=== PATIENT | male | born 1995 | race Two or more races ===

== ENCOUNTER 2019-09-23 10:39 | Emergency (ER) | payer BC ==
--- NOTE | 2019-09-23 10:59 | EDM.PDOC ---
ED HPI GENERAL MEDICAL PROBLEM - General Chief Complaint: Lower Extremity Injury/Pain Stated Complaint: ANDRY MENG LEG Time Seen by Provider: 09/23/19 10:45 Source of Information: Reports: Patient History Limitations: Reports: No Limitations - History of Present Illness INITIAL COMMENTS - FREE TEXT/NARRATIVE: HISTORY AND PHYSICAL: History of present illness: Patient is a 24-year-old male who presents to the emergency room with complaints of left hip and upper femur pain. He states approximately 10 years ago he did have left hip replacement due to multiple dislocations. patient states over the past one week he has noticed a aching painful sensation in the left hip and describes the quadricep muscle as being "weak". He is concerned that this may be related to weather changes or "something wrong with the hip". he denies any injury, trauma or falls. Patient is fully ambulatory without any difficulty or deficits. Review of systems: As per history of present illness and below otherwise all systems reviewed and negative. Past medical history: As per history of present illness and as reviewed below otherwise noncontributory. Surgical history: As per history of present illness and as reviewed below otherwise noncontributory. Social history: See social history for further information Family history: As per history of present illness and as reviewed below otherwise noncontributory. Physical exam: General: well-developed and well-nourished 24-year-old male. Alert and oriented. Nontoxic appearing and in no acute distress. Vital signs are stable and have been reviewed by me. HEENT: Atraumatic, normocephalic, pupils equal and reactive bilaterally, negative for conjunctival pallor or scleral icterus, mucous membranes moist, trachea midline. No drooling or trismus noted. No meningeal signs. No hot potato voice noted. Lungs: Clear to auscultation, breath sounds equal bilaterally. Heart: S1S2, regular rate and rhythm without overt murmur Abdomen: Soft, nondistended, nontender. Negative for masses or hepatosplenomegaly. Negative for costovertebral tenderness. Pelvis: Stable nontender. Strong femoral pulse. No bulges or erythema. Skin: Intact, warm, dry. No lesions or rashes noted. Extremities: Atraumatic, moves all extremities per self without difficulty or deficits, negative for cords or calf pain. Strong and equal strength to bilateral LE. Strong pedal and pretibial pulse. Cap refill less than 3 seconds. Neurovascular unremarkable. Neuro: Awake, alert, oriented. Cranial nerves II through XII unremarkable. Cerebellum unremarkable. Motor and sensory unremarkable throughout. Exam nonfocal. Notes: The hip itself has full range of motion. Skin is intact without any area of soft tissue swelling or warmth. He is agreeable to basic lab work along with an x-ray. I do not see a need for ultrasound at this time. I did offer Toradol IM which she declines. Diagnostics are unremarkable. (Incidental finding of dysplastic bumps of both lateral femoral heads with mild joint space narrowing of the left hip). Encouraged him to follow up with his PCP/orthopedic provider for further care/ management. Supportive care measures were reviewed and discussed. Voices understanding and is agreeable to plan of care. Denies any further questions or concerns at this time. Diagnostics: CBC, CMP, Pelvis with Hip Therapeutics: Declines Prescription: Diclofenac Impression: Left hip pain Plan: 1. Rest, ice, elevate the affected extremity. 2. Tylenol and/or Ibuprofen as needed for pain management. Diclofenac as prescribed, if you take this medication - please take with food and DO NOT take any additional NSAIDs such as ibuprofen, aleve or Naproxen. 3. Follow up with the Orthopedic provider as we discussed. Return to the ED as needed and as discussed. Definitive disposition and diagnosis as appropriate pending reevaluation and review of above. LEG Pain Score (Numeric/FACES): 7 - Related Data Allergies Allergy/AdvReac Type Severity Reaction Status Date / Time No Known Allergies Allergy Verified 09/23/19 11:19 Home Meds: Home Meds Diclofenac Sodium [Voltaren] 75 mg PO BIDMEALS PRN #30 tab.cr 09/23/19 [Rx] Review of Systems - Review of Systems Review Of Systems: ROS reveals no pertinent complaints other than HPI. ED EXAM, GENERAL - Physical Exam Exam: See Below (See dictation) Course - Vital Signs Last Recorded V/S: Last Vital Signs Temp 96.3 F 09/23/19 11:16 Pulse 91 09/23/19 11:16 Resp 16 09/23/19 11:16 BP 136/80 09/23/19 11:16 Pulse Ox 99 09/23/19 11:16 - Orders/Labs/Meds Orders: Active Orders 24 hr Category Date Time Status COMPREHENSIVE METABOLIC PN,CMP [CHEM] Stat Lab 09/23/19 11:18 Received Labs: Laboratory Tests 09/23/19 Range/Units 11:18 WBC 7.77 (4.0-11.0) K/uL RBC 5.63 (4.50-5.90) M/uL Hgb 16.5 (13.0-17.0) g/dL Hct 48.6 (38.0-50.0) % MCV 86.3 (80.0-98.0) fL MCH 29.3 (27.0-32.0) pg MCHC 34.0 (31.0-37.0) g/dL RDW Std Deviation 41.8 (28.0-62.0) fl RDW Coeff of Criss 13 (11.0-15.0) % Plt Count 206 (150-400) K/uL MPV 10.90 (7.40-12.00) fL Neut % (Auto) 54.4 (48.0-80.0) % Lymph % (Auto) 33.8 (16.0-40.0) % Woodson % (Auto) 9.9 (0.0-15.0) % Eos % (Auto) 1.4 (0.0-7.0) % Baso % (Auto) 0.5 (0.0-1.5) % Neut # (Auto) 4.2 (1.4-5.7) K/uL Lymph # (Auto) 2.6 H (0.6-2.4) K/uL Woodson # (Auto) 0.8 (0.0-0.8) K/uL Eos # (Auto) 0.1 (0.0-0.7) K/uL Baso # (Auto) 0.0 (0.0-0.1) K/uL Nucleated RBC % 0.0 /100WBC Nucleated RBCs # 0 K/uL Departure - Departure Time of Disposition: 11:55 Disposition: Home, Self-Care 01 Clinical Impression: Left hip pain - Discharge Information Prescriptions: Diclofenac Sodium [Voltaren] 75 mg PO BIDMEALS PRN #30 tab.cr PRN Reason: Pain Referrals: PCP,None [Primary Care Provider] - Forms: ED Department Discharge Additional Instructions: The following information is given to patients seen in the emergency department who are being discharged to home. This information is to outline your options for follow-up care. We provide all patients seen in our emergency department with a follow-up referral. The need for follow-up, as well as the timing and circumstances, are variable depending upon the specifics of your emergency department visit. If you don't have a primary care physician on staff, we will provide you with a referral. We always advise you to contact your personal physician following an emergency department visit to inform them of the circumstance of the visit and for follow-up with them and/or the need for any referrals to a consulting specialist. The emergency department will also refer you to a specialist when appropriate. This referral assures that you have the opportunity for follow-up care with a specialist. All of these measure are taken in an effort to provide you with optimal care, which includes your follow-up. Under all circumstances we always encourage you to contact your private physician who remains a resource for coordinating your care. When calling for follow-up care, please make the office aware that this follow-up is from your recent emergency room visit. If for any reason you are refused follow-up, please contact the [facility] Emergency Department at and asked to speak to the emergency department charge nurse. [facility] [address] [place] [id number] [facility] [place] [address] [place] [address] 1. Rest, ice, elevate the affected extremity. 2. Tylenol and/or Ibuprofen as needed for pain management. Diclofenac as prescribed, if you take this medication - please take with food and DO NOT take any additional NSAIDs such as ibuprofen, aleve or Naproxen. 3. Follow up with the Orthopedic provider as we discussed. Return to the ED as needed and as discussed. - My Orders Last 24 Hours: My Active Orders 09/23/19 11:18 COMPREHENSIVE METABOLIC PN,CMP [CHEM] Stat - Assessment/Plan Last 24 Hours: My Active Orders 09/23/19 11:18 COMPREHENSIVE METABOLIC PN,CMP [CHEM] Stat
--- NOTE | 2019-09-23 11:53 | CR ---
Pelvis and left hip: AP view of the pelvis was obtained as well as AP and frog- leg lateral views left hip. Plate and screws partially visualized within the left hip. Mild joint space narrowing is seen superiorly within the left hip. Joint space within the right hip is maintained. Dysplastic bumps are noted off of both lateral femoral heads. Sacroiliac joints are unremarkable. No acute fracture or other abnormality is seen. Impression: 1. Dysplastic bumps off both lateral femoral heads. 2. Mild joint space narrowing is seen within the left hip. 3. Previous surgery within the left hip. Diagnostic code #2 MTDD
[2019-09-23 12:01] LABS: BLOOD UREA NITROGEN,BUN 11 mg/dL (7.0-18.0); CARBON DIOXIDE,CO2 27.7 mmol/L (21.0-32.0); CHLORIDE,CL 107 mmol/L (98-107); GLUCOSE RANDOM 105 mg/dL (74-106); SODIUM,NA 143 mmol/L (136-148)
[2019-09-23] MEDS ORDERED: Acetaminophen/HYDROcodone 325-5 MG Tab PO ONE (12:02)
== END 2019-09-23 12:28 | disposition home or self-care (01) ==
LOC: MW.ED 10:39
DX: M25.552 Pain in left hip (principal)
CPT/HCPCS: 36415; 73502; 80053; 85025; 99283; A9270